=== PATIENT | male | born 1960 | race African-American/Black ===

== ENCOUNTER → 2025-02-02 | Outpatient (CLI) | payer MEDICARE, SELFPAY ==
--- NOTE | 2025-02-02 15:52 | XR_ITS ---
Examination: Lumbar spine, 5 views Technique: Lumbar spine AP, lateral, coned lateral lower lumbar spine, bilateral obliques 5 views Exam date and time: February 02, 2025 1553 hours INDICATIONS: Low back pain radiating down the left leg one month. FINDINGS: Adequate alignment lumbar vertebral bodies Transitional L5 vertebral body Mild to moderate diffuse lumbar disc narrowing, most prominent L4-L5, L5-S1 No spondylolisthesis IMPRESSION: Mild to moderate diffuse lumbar degenerative disc disease, most prominent L4-L5, L5-S1
--- NOTE | 2025-02-02 15:52 | XR_ITS ---
Examination:Left hip AP, lateral, AP pelvis 3 views Technique: Hip AP lateral, AP pelvis, 3 views Exam date and time:February 02, 2025 1553 hours INDICATIONS: Left hip pain beginning one month ago. FINDINGS: No left hip fracture or hip dislocation Moderate bilateral hip joint narrowing Bones of the pelvis intact IMPRESSION: Moderate bilateral hip osteoarthritis.
[2025-02-02 17:55] LABS: Glucose Estimated Average 355 mg/dL (80-131); Hemoglobin A1C > 14.0 % Hgb (4.8-6.0)
[2025-02-02 18:01] LABS: Alanine Aminotransferase 24 U/L (10-49); Albumin, Serum 4.3 gm/dL (3.4-4.8); Albumin/Globulin Ratio 1.5 (1.2-2.2); Alkaline Phosphatase 121 U/L (46-116); Anion Gap 12 (7-16); Aspartate Amino Transferase 17 U/L (0-34); BUN/Creatinine Ratio 11 Ratio (12-20); Bilirubin,Total 0.4 mg/dL (0.3-1.2); Blood Urea Nitrogen 15 mg/dL (9-23); Calcium 9.6 mg/dL (8.3-10.6); Calcium (Corrected) 9.6 mg/dL (8.5-10.1); Carbon Dioxide 25.3 mMol/L (20.0-31.0); Chloride 98 mMol/L (98-107); Creatinine (Component) 1.4 mg/dL (0.6-1.3); Globulin 2.8 gm/dL (2.3-3.5); Potassium 4.9 mMol/L (3.4-5.1); Sodium 135 mMol/L (136-145); Total Protein 7.1 gm/dL (5.7-8.2); eGFR 56 See Note
[2025-02-02 18:02] LABS: Glucose 399 mg/dL (74-106); Osmolality,Calculated 287 (275-295)
== END | disposition home or self-care (01) ==
LOC: CDIM 16:22 → COPL 16:22
PROVIDERS: PCP Registered Nurse; Referring Provider Registered Nurse; Visit Provider Registered Nurse
DX: E11.65 Type 2 diabetes mellitus with hyperglycemia (principal); M16.0 Bilateral primary osteoarthritis of hip; M51.370 Other intervertebral disc degeneration, lumbosacral region with discogenic back pain only; M51.360 Other intervertebral disc degeneration, lumbar region with discogenic back pain only
CPT/HCPCS: 36415; 72110; 73502; 80053; 83036

== ENCOUNTER → 2025-06-27 | Outpatient (CLI) | payer MEDICARE, SELFPAY ==
--- NOTE | 2025-06-27 12:45 | XR_ITS ---
Examination: MRI lumbar spine without contrast Date and time of exam: June 27, 2025, 1251 hours INDICATIONS: Low back pain radiating to left hip beginning 6 months ago Technique: Multiple MRI axial and sagittal sections lumbar spine. Sagittal T2-weighted images, TR 3500, TE 118 T1 weighted transverse sections, TR 688 T8.5, T2-weighted sagittal sections T1 weighted sagittal sections TR 621, TE 30 T2 axial sections, TR 4, 190, TE 84. Findings: Satisfactory alignment lumbar vertebral bodies Transitional L5 vertebral body No lumbar fracture Mild diffuse lumbar disc narrowing Diffuse lumbar disc desiccation L5-S1 2 mm central paracentral disc bulge contiguous with the right S1 nerve root, 10 mm left foraminal disc bulge producing mild left L5 ganglionic compression L4-L5 9 mm central lumbar disc bulge displacing both the right and left L5 nerve roots L3-L4 4 mm central paracentral disc bulge L2-L3 no disc protrusion L1-L2 no disc protrusion IMPRESSION: L5-S1 2 mm central paracentral disc bulge contiguous with the right S1 nerve root, 10 mm left foraminal disc bulge producing mild left L5 ganglionic compression L4-L5 9 mm central lumbar disc bulge displacing both the right and left L5 nerve roots
== END | disposition home or self-care (01) ==
LOC: SMRI 12:22
PROVIDERS: PCP Registered Nurse; Referring Provider Registered Nurse; Visit Provider Registered Nurse
DX: M51.370 Other intervertebral disc degeneration, lumbosacral region with discogenic back pain only (principal); M51.360 Other intervertebral disc degeneration, lumbar region with discogenic back pain only; G95.29 Other cord compression
CPT/HCPCS: 72148